=== PATIENT | female | born 1995 | race Caucasian/White ===

== ENCOUNTER 2023-03-27 14:58 | Emergency (ER) | payer OTHER ==
[2023-03-27 15:15] VITALS: BP 124/90; PULSE 88; RESP 18; TEMP 98.4; BMI 29.1
== END 2023-03-27 18:13 | disposition home or self-care (01) ==
LOC: JERFT 14:58
DX: M25.521 Pain in right elbow (principal); M25.571 Pain in right ankle and joints of right foot; M25.471 Effusion, right ankle; M79.89 Other specified soft tissue disorders; W13.4XXA Fall from, out of or through window, initial encounter; Y93.89 Activity, other specified; Y92.009 Unspecified place in unspecified non-institutional (private) residence as the place of occurrence of the external cause
CPT/HCPCS: 73070-TC-RT-FY; 73610-TC-RT-FY; 99283-25